=== PATIENT | female | born 1995 ===

== ENCOUNTER 2023-10-26 16:01 | Outpatient (CLI) | payer OTHER | END 2023-10-26 16:03 | disposition home or self-care (01) | LOC: PRENATAL 16:01 | PROVIDERS: ATTEND Obstetrics & Gynecology Maternal & Fetal Medicine | DX: O36.80X0 Pregnancy with inconclusive fetal viability, not applicable or unspecified (principal); Z3A.12 12 weeks gestation of pregnancy ==

== ENCOUNTER 2023-12-14 14:55 | Outpatient (CLI) | payer OTHER | END 2023-12-14 14:56 | disposition home or self-care (01) | LOC: PRENATAL 14:55 | PROVIDERS: ATTEND Obstetrics & Gynecology Maternal & Fetal Medicine | DX: O35.3XX0 Maternal care for (suspected) damage to fetus from viral disease in mother, not applicable or unspecified (principal); O44.00 Complete placenta previa NOS or without hemorrhage, unspecified trimester; Z3A.20 20 weeks gestation of pregnancy ==

== ENCOUNTER 2024-03-07 14:12 | Outpatient (CLI) | payer OTHER | END 2024-03-07 14:13 | disposition home or self-care (01) | LOC: PRENATAL 14:12 | PROVIDERS: ATTEND Obstetrics & Gynecology Maternal & Fetal Medicine | DX: O26.849 Uterine size-date discrepancy, unspecified trimester (principal); O36.8199 Decreased fetal movements, unspecified trimester, other fetus; Z3A.32 32 weeks gestation of pregnancy ==

== ENCOUNTER 2024-05-02 06:37 | Inpatient (IN) | payer OTHER ==
[~2024-05-02] VITALS: Ht 162.6 cm; Wt 78.9 kg
[2024-05-02 07:00] VITALS: BP 127/88; O2SAT 100
[2024-05-02 08:42] LABS: URINE APPEARANCE Clear; URINE BILIRRUBIN Negative (NEGATIVE); URINE BLOOD Negative; URINE COLOR Yellow; URINE GLUCOSE Negative (NEGATIVE); URINE LEUKOCYTE Large; URINE NITRATE Negative; URINE PROTEIN Negative (NEGATIVE)
[2024-05-02 08:43] LABS: HEMATOCRIT 37.1 % (36.0-45.00); HEMOGLOBIN 12.8 g/dL (12.0-15.00); MEAN CELL VOLUME 90.8 fL (80.00-100.00); MEAN CORPUSCULAR HEMOGLOBIN 31.3 pg (27.00-32.0); MEAN CORPUSCULAR HGB CONC 34.5 g/dl (32.0-36.0); RED BLOOD COUNT 4.09 M/uL (4.00-6.00); RED CELL DISTRIBUTION WIDTH 13.5 % (11.5-14.5)
[2024-05-02 08:44] LABS: URINE BACTERIA 1193.1 uL (0.0-1933); URINE EPITHELIAL CELLS 22.1 uL (0.0-38.8); URINE WBC 65.5 uL (0.0-23.2)
[2024-05-02 08:49] LABS: PLATELET COUNT 125 K/uL (150-450)
[2024-05-02] MEDS ORDERED: OXYTOCIN 500 ML IV SCH (09:00)
[2024-05-02 09:13] LABS: URINE CAST 0.44 uL (0.0-1.40); URINE KETONE 40 (NEGATIVE); URINE RBC 1.4 uL (0.0-20.8)
[2024-05-02 09:37] LABS: INR 0.95; PARTIAL THROMBOPLASTIN TIME 28.2 SECONDS (22.0-34.0); PROTHROMBIN TIME 10.4 SECONDS (9.0-11.5)
[2024-05-02 10:12] LABS: ALBUMIN 2.7 gm/dL (3.4-5.0); BILIRUBIN TOTAL 0.71 mg/dL (0.3-1.2); CALCIUM 8.8 mg/dL (8.5-10.1); CREATININE SERUM 0.64 mg/dL (0.55-1.02); GFR 108.96; GLOBULINA 3.4 G/DL (2.4-3.5); POTASSIUM 3.46 mEq/L (3.5-5.1); TOTAL PROTEIN 6.1 gm/dL (6.4-8.2)
[2024-05-02 10:36] VITALS: BP 122/63
[2024-05-02 13:13] VITALS: BP 135/65
[2024-05-02] MEDS ORDERED: MORPHINE SULFATE 4 MG/ML VIAL IV PRN (13:15)
[2024-05-02] MEDS ORDERED: CHLORHEXIDINE GLUCONATE 120 ML BOTTLE TOP ONE ×2 (13:37→17:30)
[2024-05-02] MEDS ORDERED: ERYTHROMYCIN BASE OPHT 1GM EACH TUBE OP ONE ×2 (13:37→17:30)
[2024-05-02] MEDS ORDERED: LIDOCAINE HCL 1% 10ML VIAL ONE (13:37)
[2024-05-02] MEDS ORDERED: OXYTOCIN 20 UNITS/1000ML RL PIGGYBAG IV ONE ×2 (13:37→16:30)
[2024-05-02] MEDS ORDERED: MORPHINE SULFATE 4 MG/ML CARTRIDGE IV PRN (14:00)
[2024-05-02] MEDS ORDERED: OXYTOCIN 10 UNITS/ML VIAL ONE (15:00)
[2024-05-02] MEDS ORDERED: PRENATAL PLUS1 EAC1 PO (15:11)
[2024-05-02] MEDS ORDERED: OXYTOCIN 10 UNITS/ML VIAL IM ONE (17:30)
[2024-05-02] MEDS ORDERED: OXYTOCIN 1,000 ML IV SCH ×2 (17:30→21:00)
[2024-05-02] MEDS ORDERED: OXYTOCIN 20 UNITS/1000ML RL PIGGYBAG IV SCH (17:30)
[2024-05-02 19:42] VITALS: BP 124/58
[2024-05-02] MEDS ORDERED: IBUprofen 400 MG TABLET PO PRN (20:45)
[2024-05-02] MEDS ORDERED: OXYTOCIN 10 UNITS/ML VIAL IM STA (21:00)
[2024-05-02] MEDS ORDERED: CHLORHEXIDINE GLUCONATE 120 ML BOTTLE TP SCH (21:00)
[2024-05-02 21:07] VITALS: BP 112/60
[2024-05-02 21:54] LABS: HEMATOCRIT 36.7 % (36.0-45.00); HEMOGLOBIN 12.9 g/dL (12.0-15.00); MEAN CELL VOLUME 90.5 fL (80.00-100.00); MEAN CORPUSCULAR HEMOGLOBIN 31.8 pg (27.00-32.0); MEAN CORPUSCULAR HGB CONC 35.2 g/dl (32.0-36.0); RED BLOOD COUNT 4.05 M/uL (4.00-6.00); RED CELL DISTRIBUTION WIDTH 13.6 % (11.5-14.5)
[2024-05-02 21:56] LABS: PLATELET COUNT 128 K/uL (150-450)
[2024-05-03] VITALS: BP 121/78
[2024-05-03 08:25] VITALS: BP 96/60
[2024-05-03 16:10] VITALS: BP 121/68
[2024-05-04] VITALS: BP 100/55
[2024-05-04 08:49] VITALS: BP 118/73
== END 2024-05-04 13:14 | disposition home or self-care (01) | DRG 807 ==
LOC: LDR 06:37 → OB/GYN 06:37
PROVIDERS: ADMIT Obstetrics & Gynecology; ATTEND Obstetrics & Gynecology
PROC: 10E0XZZ Delivery of Products of Conception, External Approach (ICD-10-PCS; principal; 2024-05-02)
PROC: 4A1HXCZ Monitoring of Products of Conception, Cardiac Rate, External Approach (ICD-10-PCS; 2024-05-02)
DX: O48.0 Post-term pregnancy (principal); Z37.0 Single live birth; Z3A.40 40 weeks gestation of pregnancy